=== PATIENT | male | born 1950 | race Caucasian/White ===

== ENCOUNTER 2021-03-25 17:19 | Emergency (ER) | payer MEDICARE, BC, SELFPAY ==
[2021-03-25] VITALS (7 sets, daily range): BP systolic 115–170; BP diastolic 64–97; PULSE 101–130; RESP 18–22; TEMP 37.2; O2SAT 90–98; BMI 33.5
--- NOTE | 2021-03-25 17:28 | CTR_ITS ---
PROCEDURE INFORMATION: Exam: CT Head Without Contrast Exam date and time: 03/25/2021 5:28 PM Age: 70 years old Clinical indication: Injury or trauma; Other: Thrown from horse. Horse May have rolled onto PT; Blunt trauma (contusions or hematomas); Consciousness not specified TECHNIQUE: Imaging protocol: Computed tomography of the head without contrast. Radiation optimization: All CT scans at this facility use at least one of these dose optimization techniques: automated exposure control; mA and/or kV adjustment per patient size (includes targeted exams where dose is matched to clinical indication); or iterative reconstruction. COMPARISON: No relevant prior studies available. RADIATION DOSE METRICS: Total DLP (mGy-cm): 940.41 FINDINGS: Brain: Normal. No hemorrhage. Unremarkable white matter. No mass effect. Cerebral ventricles: No ventriculomegaly. Paranasal sinuses: Visualized sinuses are unremarkable. No fluid levels. Mastoid air cells: Visualized mastoid air cells are well aerated. Bones/joints: Unremarkable. No acute fracture. Soft tissues: Unremarkable. CT/CT head wo con* [id number] IMPRESSION: Negative for intracranial hemorrhage or mass effect. Radiation Dose CTDIVOL = (mGy): DLP = 940.41 (mGy-cm)
--- NOTE | 2021-03-25 17:28 | CTR_ITS ---
PROCEDURE INFORMATION: Exam: CT Chest With Contrast; Diagnostic Exam date and time: 03/25/2021 5:28 PM Age: 70 years old Clinical indication: Injury or trauma; Other: Thrown from horse and horse May have rolled onto patient; Generalized; Blunt trauma (contusions or hematomas) TECHNIQUE: Imaging protocol: Diagnostic computed tomography of the chest with contrast. Radiation optimization: All CT scans at this facility use at least one of these dose optimization techniques: automated exposure control; mA and/or kV adjustment per patient size (includes targeted exams where dose is matched to clinical indication); or iterative reconstruction. Contrast material: VISI 320; Contrast volume: 95 ml; Contrast route: INTRAVENOUS (IV); COMPARISON: CR (PELVIS, ) 03/25/2021 5:48 PM RADIATION DOSE METRICS: Total DLP (mGy-cm): 2279.44 FINDINGS: Lungs: Unremarkable. No consolidation. No masses. Pleural spaces: Unremarkable. No pneumothorax. No pleural effusion. Heart: Mild multichamber cardiac enlargement. Negative for pericardial effusion. Mediastinal space: No mediastinal hematoma. Aorta: Unremarkable. No aortic aneurysm. Lymph nodes: Unremarkable. No enlarged lymph nodes. Bones/joints: Severely displaced fracture in the proximal 3rd of the left clavicle. The head of the clavicle is fractured but aligned with the manubrium. The more distal shaft is displaced anteriorly. Thoracic spine alignment is anatomic. No thoracic vertebral fracture identified. Soft tissues: There is a focal soft tissue hematoma of the medial anterior chest adjacent the fracture which include thickening of the distal left sternocleidomastoid muscle. IMPRESSION: 1. Comminuted, displaced medial left clavicle fracture with associated soft tissue hematoma. 2. Negative for intrathoracic injury. PROCEDURE INFORMATION: Exam: CT Abdomen And Pelvis With Contrast Exam date and time: 03/25/2021 5:28 PM Age: 70 years old Clinical indication: Injury or trauma; Other: Thrown from horse and horse May have rolled onto patient; Generalized; Blunt trauma (contusions or hematomas) TECHNIQUE: Imaging protocol: Computed tomography of the abdomen and pelvis with contrast. Radiation optimization: All CT scans at this facility use at least one of these dose optimization techniques: automated exposure control; mA and/or kV adjustment per patient size (includes targeted exams where dose is matched to clinical indication); or iterative reconstruction. Contrast material: VISI 320; Contrast volume: 95 ml; Contrast route: INTRAVENOUS (IV); COMPARISON: CR (PELVIS, ) 03/25/2021 5:48 PM RADIATION DOSE METRICS: Total DLP (mGy-cm): 2279.44 FINDINGS: Liver: Normal. No mass. Gallbladder and bile ducts: Cholecystectomy. Nondilated biliary system. Pancreas: Normal. No ductal dilation. Spleen: Normal. No splenomegaly. Adrenal glands: Normal. No mass. Kidneys and ureters: Several small simple bilateral renal cortical cysts. No dedicated follow-up. Negative for hydronephrosis. No renal injury. Stomach and bowel: Unremarkable. No obstruction. No mucosal thickening. Large incidental diverticulum at the duodenal jejunal junction. Appendix: No evidence of appendicitis. Intraperitoneal space: Unremarkable. No free air. No significant fluid collection. Vasculature: Unremarkable. No abdominal aortic aneurysm. Lymph nodes: Unremarkable. No enlarged lymph nodes. Urinary bladder: Unremarkable as visualized. Reproductive: Large calcifications in the prostate gland. No prostate gland enlargement. Bones/joints: Unremarkable. No acute fracture. Soft tissues: Unremarkable. CT/CT chest abd pel w con* IMPRESSION: Negative for acute abdominopelvic injury. COMMENTS: Consistent with the [employer]'s Incidental Findings Committee white paper (J Am Royal [employer]iol 2018): Any incidental renal lesion less than 1 cm or classified as too small to characterize, or any incidental cystic renal lesion characterized as simple-appearing, is likely benign. No follow-up imaging is recommended for these lesions per consensus recommendations based on imaging criteria. Radiation Dose CTDIVOL = (mGy): DLP = 2279.44~2279.44 (mGy-cm)
--- NOTE | 2021-03-25 17:28 | CTR_ITS ---
PROCEDURE INFORMATION: Exam: CT Cervical Spine Without Contrast Exam date and time: 03/25/2021 5:28 PM Age: 70 years old Clinical indication: Injury or trauma; Other: Thrown from horse and horse May have rolled onto PT; Blunt trauma TECHNIQUE: Imaging protocol: Computed tomography images of the cervical spine without contrast. Radiation optimization: All CT scans at this facility use at least one of these dose optimization techniques: automated exposure control; mA and/or kV adjustment per patient size (includes targeted exams where dose is matched to clinical indication); or iterative reconstruction. COMPARISON: CT head wo con* [id number] 03/25/2021 5:58 PM RADIATION DOSE METRICS: Total DLP (mGy-cm): 716.83 FINDINGS: Vertebrae: No acute fracture. Normal alignment. C2-C3: No significant disc protrusion. No severe spinal canal stenosis. No significant neural foraminal narrowing. C3-C4: No significant disc protrusion. No severe spinal canal stenosis. No significant neural foraminal narrowing. C4-C5: No significant disc protrusion. No severe spinal canal stenosis. No significant neural foraminal narrowing. C5-C6: No significant disc protrusion. No severe spinal canal stenosis. No significant neural foraminal narrowing. C6-C7: No significant disc protrusion. No severe spinal canal stenosis. No significant neural foraminal narrowing. C7-T1: No significant disc protrusion. No severe spinal canal stenosis. No significant neural foraminal narrowing. Soft tissues: Unremarkable. Mastoid air cells: Left sternocleidomastoid appears somewhat enlarged with some surrounding edema, likely related to trauma. Lungs: Lung apices are normal. CT/CT cervical spin wo con* [id number] IMPRESSION: 1. Negative for fracture or dislocation. 2. Left sternocleidomastoid appears somewhat enlarged with some surrounding edema, likely related to trauma. Radiation Dose CTDIVOL = (mGy): DLP = 716.83 (mGy-cm)
--- NOTE | 2021-03-25 17:28 | XRR_ITS ---
PROCEDURE INFORMATION: Exam: XR Pelvis Exam date and time: 03/25/2021 5:28 PM Age: 70 years old Clinical indication: Pelvic pain; Additional info: Trauma TECHNIQUE: Imaging protocol: XR pelvis. Views: 1 or 2 view. COMPARISON: No relevant prior studies available. FINDINGS: Bones/joints: Unremarkable. No acute fracture. Symmetric moderate narrowing of hip joint spaces. Soft tissues: Unremarkable. XR/XR pelvis 1-2V* [id number] IMPRESSION: No acute findings. Radiation Dose CTDIVOL = (mGy): DLP = (mGy-cm)
--- NOTE | 2021-03-25 17:33 | XRR_ITS ---
PROCEDURE INFORMATION: Exam: XR Left Elbow Exam date and time: 03/25/2021 5:33 PM Age: 70 years old Clinical indication: Pain; Left; Prior surgery; Surgery date: 6+ months; Surgery type: Lt . elbow TECHNIQUE: Imaging protocol: XR Left elbow. Views: 3 or more views. COMPARISON: No relevant prior studies available. FINDINGS: Bones/joints: No acute fractures. Significant arthritis changes of joint space. Joint space alignment anatomic. Chronic corticated bone fragments of the proximal ulna. Surgical loi in the proximal ulna. Negative for joint effusion. Soft tissues: Normal. XR/XR elbow LT min 3V* [id number] IMPRESSION: Negative for acute osseous abnormality. Radiation Dose CTDIVOL = (mGy): DLP = (mGy-cm)
--- NOTE | 2021-03-25 17:47 | ED_ITS ---
Documented by User: Bogdan Brown DO 03/27/21 06:01 HPI - Trauma General: Chief Complaint: Trauma Stated Complaint: R SHOULDER PAIN, R RIB PAIN Time Seen by Provider: 03/25/21 17:23 History of Present Illness: HPI narrative: 70-year-old male was riding horses at a local trail ride and the horse was startled he was thrown from a horse and rolled out of embankment an unknown length. He did strike his head he is unsure if he lost consciousness. Is complaining of right elbow and shoulder pain MD complaint: fall Onset (ago): minute(s) Loss of Consciousness: unsure Location: head Context: other (Fall from a horse) Associated symptoms: Reports back pain, difficulty breathing (Pain with inspiration) and headache(s); Denies abdominal pain, chest pain, chills, confusion, cough, dental pain, diaphoresis, dizziness, epistaxis, fever(s), nausea, seizures, short of breath, syncope, visual disturbances, vomiting or weakness Review of Systems Const: Denies: fever(s), chills or diaphoresis ENMT: Denies: dental pain or epistaxis Card: Denies: chest pain or syncope Resp: Denies: dyspnea, productive cough or non-productive cough GI: Denies: abdominal pain, nausea or vomiting : Denies: flank pain, dysuria, urinary frequency or urinary urgency Musc: Reports: back pain, extremity pain (Left hip) and other (Left clavicle tenderness) Skin/Breast: Reports: other (Left forearm abrasion) Neuro: Reports: headache(s); Denies: dizziness or confusion Physical Exam Const: COMMON NORMALS: no acute distress GENERAL APPEARANCE: cooperative and comfortable ORIENTATION/CONSCIOUSNESS: Yes awake, Yes oriented to person, Yes oriented to place and Yes oriented to time HENMT: COMMON NORMALS: normocephalic, atraumatic, hearing grossly normal bilaterally, external ears normal, EAC's normal, TM's normal bilaterally, Normal nasal mucous membranes and turbinates present, moist oral mucous membranes and oropharynx normal HEAD & SCALP: normocephalic and atraumatic NOSE: Normal nasal mucous membranes and turbinates present EXTERNAL EAR: Yes external ears normal EXTERNAL AUDITORY CANAL: EAC's normal TYMPANIC MEMBRANE: TM's normal bilaterally Eye: COMMON NORMALS: Equal, round and reactive pupils present, EOMs intact bilaterally, conjunctivae normal and no scleral icterus CONJUNCTIVA: Yes conjunctivae normal PUPIL: Yes Equal, round and reactive pupils present Neck/C-Spine: COMMON NORMALS: full ROM, no lymphadenopathy, supple and no JVD Resp: COMMON NORMALS: normal respiratory effort, No retractions, No use of accessory muscles and clear to auscultation bilaterally AUSCULTATION: clear to auscultation bilaterally Cardio: COMMON NORMALS: no JVD, regular rate, regular rhythm and No murmurs present (Cardio) RATE: regular rate RHYTHM: regular rhythm GI: COMMON NORMALS: Soft to palpation and No hepatosplenomegaly present AUSCULTATION: Yes normoactive bowel sounds PALPATION: Yes Soft to palpation, No Tenderness to palpation present (GI), No Guarding due to palpation present (GI) and Yes No hepatosplenomegaly present Extremity: COMMON NORMALS: normal to inspection, capillary refill normal, no clubbing, cyanosis or edema, no calf tenderness and no pedal edema NARRATIVE EXTREMITY EXAM: Left hip pain on palpation, abrasion left elbow, pain discomfort with range of motion of the left shoulder palpation of the clavicle Neuro: SENSORIUM/ORIENTATION: Yes oriented to person, Yes oriented to place and Yes oriented to time Skin: COMMON NORMALS: no rashes or lesions noted GENERAL SKIN EXAM: no rashes or lesions noted Course Vital Signs: Vital signs: Vital Signs Temperature 98.9 F 03/25/21 17:49 Pulse Rate 105 H 03/25/21 21:47 Respiratory Rate 18 03/25/21 21:47 Blood Pressure 115/64 03/25/21 21:47 Pulse Oximetry 95 03/25/21 21:47 MDM - Trauma MDM Narrative: Medical decision making narrative: Initial evaluation and assessment. Labs ordered along with imaging. Care turned over to Dr. Linares at change of shift see his note for final diagnosis and disposition Lab Data: Labs: Lab Results 03/25/21 03/25/21 03/25/21 17:39 17:39 19:15 WBC 12.9 10^3/uL H 10 ^3/uL (4.0-10.0) RBC 5.33 10^6/uL H 10 ^6/uL (4.1-5.3) Hgb 16.3 g/dL g/dL (11.7-16.6) Hct 48.7 % % (42.0-52.0) MCV 91.4 fl fl (80-94) MCH 30.6 pg pg (28.0-34.0) MCHC 33.5 g/dL g/dL (30.0-36.0) RDW 13.2 % % (12.1-15.1) Plt Count 146 10^3/cmm 10^3 /cmm (130-400) MPV 10.7 fL H fL (7.4-10.4) Neut % (Auto) 85.5 % % Lymph % (Auto) 7.1 % % [place] % (Auto) 6.1 % % Eos % (Auto) 0.3 % % Baso % (Auto) 0.4 % % Neut # (Auto) 11.01 10^3/uL H 1 0^3/uL (1.8-7.7) Lymph # (Auto) 0.9 10^3/uL 10^3/ uL (0.8-4.8) [place] # (Auto) 0.8 10^3/uL 10^3/ uL (0.2-0.9) Eos # (Auto) 0.0 10^3/uL 10^3/ uL (0.0-0.8) Baso # (Auto) 0.1 10^3/uL 10^3/ uL (0.0-0.1) Nucleated RBC % (a uto) 0 % % Nucleated RBCs # 0.0 /100WBC /100W BC Sodium 137 mmol/L mmol/L (136-145) Potassium 4.1 mmol/L mmol/L (3.5-5.1) Chloride 100 mmol/L mmol/L (98-107) Carbon Dioxide 25 mmol/L mmol/L (22-29) Anion Gap 16.1 (5-19) BUN 13 mg/dL mg/dL (8-23) Creatinine 0.6 mg/dL L mg/dL (0.7-1.2) GFR Calculation Not Reportable Glucose 124 mg/dL H mg/dL (65-115) Calculated Osmolal ity 286 mOsm/kg mOsm/ kg (285-295) Calcium 8.7 mg/dL mg/dL (8.5-10.5) Total Bilirubin 0.7 mg/dL mg/dL (0.15-1.2) AST 34 U/L U/L (0-40) ALT 23 U/L U/L (0-41) Alkaline Phosphata se 82 IU/L IU/L (40-130) Total Protein 6.8 g/dL g/dL (6.6-8.7) Albumin 4.0 g/dL g/dL (3.5-5.2) Globulin 2.8 g/dL g/dL (1.3-4.6) Urine Color Yellow (Yellow) Urine Appearance Cloudy (CLEAR) Urine pH 5 (5-7) Ur Specific Gravit y 1.020 (1.005-1.030) Urine Protein Trace (Negative) Urine Glucose (UA) Norm (Normal) Urine Ketones 2+ H (Negative) Urine Blood 2+ H (Negative) Urine Nitrate Negative (Negative) Urine Bilirubin 1+ H (Negative) Urine Urobilinogen 1 mg/dL H mg/dL (Negative) Ur Leukocyte Leticia ase Trace H (Negative) Urine RBC 0-4 /hpf H /hpf (0-2) Urine WBC 5-10 /hpf H /hpf (0-5) Ur Squamous Epith Cells 0-4 /hpf H /hpf (0-5) Calcium Oxalate Cr ystal 5-10 /hpf H /hpf Amorphous Sediment Not Reportable Urine Bacteria 1+ /hpf H /hpf (NONE) Urine Sperm 4+ /hpf /hpf Discharge Plan Discharge Patient Disposition: Home Clinical Impression: Clavicular fracture, Acute hip pain, Abrasion, Atrial fibrillation Condition: Stable Prescriptions: New acetaminophen 500 mg tablet 500 mg PO Q6H PRN (Reason: pain) 10 Days Qty: 40 RF: 0 lidocaine 5 % adhesive patch,medicated 1 patch topical DAILY PRN (Reason: pain) 10 Days Qty: 10 RF: 0 orphenadrine citrate 100 mg tablet extended release 100 mg PO BID PRN (Reason: pain) 10 Days Qty: 20 RF: 0 metoprolol succinate 25 mg tablet extended release 24 hr 25 mg PO DAILY 7 Days Qty: 7 RF: 0 Discharge Orders: Discharge ED (Routine); Ordered 03/25/21 Ordered By: Monroe Linares Discharge Diet: Advance as tolerated Discharge Activity: Resume usual activity Patient Instructions: Fractures, A-fib (Atrial Fibrillation) (ED) Activity Restrictions/Additional Instructions: Our field case manager will have you follow-up with Orthopedics and PCP in the next few days. You would be expected to have a phone call with our field case manager who will put you on the schedule. Take your medicine as instructed. Please use your sling for your clavicular fracture. Come back if you have any new or concerning issues. 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 HEENT: No vision changes CV: No chest pain, no palpitations PULM: no cough, no dyspnea. GI: No abdominal pain, no N/V/D. : No dysuria MSKEL: +L hip pain, +L clavicular pain SKIN: +L forearm abrasion NEURO: No headache, no focal weakness. HEME: No visible bruises PSYCH: Normal mood Physical Exam Narrative: EXAM NARRATIVE: Head: Atraumatic Eyes: PERRL, conjunctiva without injection ENT: Mucous membrane moist NECK: Supple, ROM intact LUNGS: LCTAB, no crackles/rhonchi CV: RRR ABDOMEN: Soft, nontender in all quadrants EXTREMITY: +L hip tenderness to palpation, L BKA, +L clavicular ttp SKIN: +abrasions over the L arm NEURO: Awake and alert, no focal motor deficits PSYCH: Normal mood and affect Course Vital Signs: Vital signs: Vital Signs Temperature 98.9 F 03/25/21 17:49 Pulse Rate 105 H 03/25/21 21:47 Respiratory Rate 18 03/25/21 21:47 Blood Pressure 115/64 03/25/21 21:47 Pulse Oximetry 95 03/25/21 21:47 MDM - Trauma MDM Narrative: Medical decision making narrative: 70-year-old male presents emergency room after falling off a horse. On exam, patient has tenderness to palpation over the left clavicle. He has abrasions over the L forearm. S/p TDAP and T3 in th ED Patient stating significant for left clavicular comminuted fracture. Patient is given follow-up with orthopedics for management of clavicular fracture. I have given patient follow up with our field case manager to be seen by our outpatient Orthopedics. Patient aware of a call from our field case manager to schedule for appointment(s) and verbalizes understanding of the importance of following up. Patient was observed in the emergency room, he was found to go into atrial fibrillation with RVR. Patient has no known history of atrial fibrillation. I have discussed this extensively with patient that this need to be evaluated since he is at risk for having stroke from it. Patient received 5 metoprolol IV and 50 mg of metoprolol p.o with significant improvement in atrial fibrillation. Patient has been able to ambulate. Patient is given a sling for his clavicular fracture. Rest of his work-up within normal limit. I have given patient follow up with our field case manager to be seen by a PCP for evaluation of new onset of atrial fibrillation. Patient aware of a call from our field case manager to schedule for appointment(s) and verbalizes understanding of the importance of following up. Will not anticoagulate today due to concerns for fall risks. Rx tylenol, norflex, lidocaine patch PRN pain, meotprolol PO for atrial fibrillation Disposition: Discharge. Patient counseled regarding diagnostic impression, treatment plan. Patient given ED strict return precautions to return for continuation, worsening, or development of new symptoms. Instructed to f/u w/ PCP regarding symptoms today. Patient verbalized understanding. Lab Data: Labs: Lab Results 03/25/21 03/25/21 03/25/21 17:39 17:39 19:15 WBC 12.9 10^3/uL H 10 ^3/uL (4.0-10.0) RBC 5.33 10^6/uL H 10 ^6/uL (4.1-5.3) Hgb 16.3 g/dL g/dL (11.7-16.6) Hct 48.7 % % (42.0-52.0) MCV 91.4 fl fl (80-94) MCH 30.6 pg pg (28.0-34.0) MCHC 33.5 g/dL g/dL (30.0-36.0) RDW 13.2 % % (12.1-15.1) Plt Count 146 10^3/cmm 10^3 /cmm (130-400) MPV 10.7 fL H fL (7.4-10.4) Neut % (Auto) 85.5 % % Lymph % (Auto) 7.1 % % [place] % (Auto) 6.1 % % Eos % (Auto) 0.3 % % Baso % (Auto) 0.4 % % Neut # (Auto) 11.01 10^3/uL H 1 0^3/uL (1.8-7.7) Lymph # (Auto) 0.9 10^3/uL 10^3/ uL (0.8-4.8) [place] # (Auto) 0.8 10^3/uL 10^3/ uL (0.2-0.9) Eos # (Auto) 0.0 10^3/uL 10^3/ uL (0.0-0.8) Baso # (Auto) 0.1 10^3/uL 10^3/ uL (0.0-0.1) Nucleated RBC % (a uto) 0 % % Nucleated RBCs # 0.0 /100WBC /100W BC Sodium 137 mmol/L mmol/L (136-145) Potassium 4.1 mmol/L mmol/L (3.5-5.1) Chloride 100 mmol/L mmol/L (98-107) Carbon Dioxide 25 mmol/L mmol/L (22-29) Anion Gap 16.1 (5-19) BUN 13 mg/dL mg/dL (8-23) Creatinine 0.6 mg/dL L mg/dL (0.7-1.2) GFR Calculation Not Reportable Glucose 124 mg/dL H mg/dL (65-115) Calculated Osmolal ity 286 mOsm/kg mOsm/ kg (285-295) Calcium 8.7 mg/dL mg/dL (8.5-10.5) Total Bilirubin 0.7 mg/dL mg/dL (0.15-1.2) AST 34 U/L U/L (0-40) ALT 23 U/L U/L (0-41) Alkaline Phosphata se 82 IU/L IU/L (40-130) Total Protein 6.8 g/dL g/dL (6.6-8.7) Albumin 4.0 g/dL g/dL (3.5-5.2) Globulin 2.8 g/dL g/dL (1.3-4.6) Urine Color Yellow (Yellow) Urine Appearance Cloudy (CLEAR) Urine pH 5 (5-7) Ur Specific Gravit y 1.020 (1.005-1.030) Urine Protein Trace (Negative) Urine Glucose (UA) Norm (Normal) Urine Ketones 2+ H (Negative) Urine Blood 2+ H (Negative) Urine Nitrate Negative (Negative) Urine Bilirubin 1+ H (Negative) Urine Urobilinogen 1 mg/dL H mg/dL (Negative) Ur Leukocyte Leticia ase Trace H (Negative) Urine RBC 0-4 /hpf H /hpf (0-2) Urine WBC 5-10 /hpf H /hpf (0-5) Ur Squamous Epith Cells 0-4 /hpf H /hpf (0-5) Calcium Oxalate Cr ystal 5-10 /hpf H /hpf Amorphous Sediment Not Reportable Urine Bacteria 1+ /hpf H /hpf (NONE) Urine Sperm 4+ /hpf /hpf Imaging Data^: Other Imaging: Radiologist's impression: [address] [address]GRvj ReportSigned Patient: Rachel Perales #: [id number]: 03/19/1951Acct#:[id number]/Sex: 70 / MADM Date: 03/25/21Loc: ERRoom/Bed:Attending Dr: Ordering Provider/Ordering MD: Bogdan Brown DO Date of Service: 03/25/21 Procedure(s): XR shoulder LT min 2V* 25233 Accession Number(s): [id number] Report Number: [id number] PROCEDURE INFORMATION: Exam: XR Left Shoulder Exam date and time: 03/25/2021 5:50 PM Age: 70 years old Clinical indication: Pain; Shoulder; Left; Additional info: Pain/trauma TECHNIQUE: Imaging protocol: XR Left shoulder. Views: 2 or more views. COMPARISON: CT chest abd pel w con* 03/25/2021 6:03 PM FINDINGS: Bones/joints: Comminuted medial left clavicle fracture. Acromioclavicular joint intact. Glenohumeral joint intact. Heart/Mediastinum: Mild to moderate cardiac enlargement. Soft tissues: Normal. XR/XR shoulder LT min 2V* 07392 IMPRESSION: Comminuted medial 3rd left clavicle fracture. Radiation Dose CTDIVOL = (mGy): DLP = (mGy-cm) Dictated By:Dwayne DurbininSigned By:RamakrishnainS Date/Time:03/25/21/ [address] [address]JYdr ReportSigned Patient: Rachel Perales #: [id number]: 03/19/1951Acct#:[id number]/Sex: 70 / MADM Date: 03/25/21Loc: ERRoom /Bed:Attending Dr: Ordering Provider/Ordering MD: Bogdan Brown DO Date of Service: 03/25/21 Procedure(s): XR elbow LT min 3V* 46812 Accession Number(s): [id number] Report Number: [id number] PROCEDURE INFORMATION: Exam: XR Left Elbow Exam date and time: 03/25/2021 5:33 PM Age: 70 years old Clinical indication: Pain; Left; Prior surgery; Surgery date: 6+ months; Surgery type: Lt . elbow TECHNIQUE: Imaging protocol: XR Left elbow. Views: 3 or more views. COMPARISON: No relevant prior studies available. FINDINGS: Bones/joints: No acute fractures. Significant arthritis changes of joint space. Joint space alignment anatomic. Chronic corticated bone fragments of the proximal ulna. Surgical loi in the proximal ulna. Negative for joint effusion. Soft tissues: Normal. XR/XR elbow LT min 3V* 94654 IMPRESSION: Negative for acute osseous abnormality. Radiation Dose CTDIVOL = (mGy): DLP = (mGy-cm) Dictated By:Karly Durbin By:Karly Durbin Date/Time:03/25/21/ [address] [place], [place] [address]IIwi ReportSigned Patient: Rachel Perales #: [id number]: 03/19/1951Acct#:[id number]/Sex: 70 MADM Date: 03/25/21Loc: ERRoom/Bed:Attending Dr: Ordering Provider/Ordering MD: Bogdan Brown DO Date of Service: 03/25/21 Procedure(s): XR pelvis 1-2V* 00550 Accession Number(s): [id number] Report Number: [id number] PROCEDURE INFORMATION: Exam: XR Pelvis Exam date and time: 03/25/2021 5:28 PM Age: 70 years old Clinical indication: Pelvic pain; Additional info: Trauma TECHNIQUE: Imaging protocol: XR pelvis. Views: 1 or 2 view. COMPARISON: No relevant prior studies available. FINDINGS: Bones/joints: Unremarkable. No acute fracture. Symmetric moderate narrowing of hip joint spaces. Soft tissues: Unremarkable. XR/XR pelvis 1-2V* 06757 IMPRESSION: No acute findings. Radiation Dose CTDIVOL = (mGy): DLP = (mGy-cm) Dictated By:Karly Durbin By:Karly Durbin Date/Time:03/25/21 1838DD/ [address] [address]QC Scan ReportSigned Patient: Rachel Perales #: [id number]: 950Acct#:[id number]/Sex: MADM Date: 03/25/21Loc: ERRoom/Bed:Attending Dr: Ordering Provider/Ordering MD: Bogdan Brown DO Date of Service: 03/25/21 Procedure(s): CT head wo con* 64200 Accession Number(s): [id number] Report Number: [id number] PROCEDURE INFORMATION: Exam: CT Head Without Contrast Exam date and time: 03/25/2021 5:28 PM Age: 70 years old Clinical indication: Injury or trauma; Other: Thrown from horse. Horse May have rolled onto PT; Blunt trauma (contusions or hematomas); Consciousness not specified TECHNIQUE: Imaging protocol: Computed tomography of the head without contrast. Radiation optimization: All CT scans at this facility use at least one of these dose optimization techniques: automated exposure control; mA and/or kV adjustment per patient size (includes targeted exams where dose is matched to clinical indication); or iterative reconstruction. COMPARISON: No relevant prior studies available. RADIATION DOSE METRICS: Total DLP (mGy-cm): 940.41 FINDINGS: Brain: Normal. No hemorrhage. Unremarkable white matter. No mass effect. Cerebral ventricles: No ventriculomegaly. Paranasal sinuses: Visualized sinuses are unremarkable. No fluid levels. Mastoid air cells: Visualized mastoid air cells are well aerated. Bones/joints: Unremarkable. No acute fracture. Soft tissues: Unremarkable. CT/CT head wo con* [id number] IMPRESSION: Negative for intracranial hemorrhage or mass effect. Radiation Dose CTDIVOL = (mGy): DLP = 940.41 (mGy-cm) Dictated By:Fausto Dawson MDSigned By:Fausto Dawson MDSigned Date/Time:03/25/21 1855DD/ 1728 [address] [place], [place] [address]HW Scan ReportSigned Patient: Rachel Perales #: [id number]: 03/19/1951Acct#:[id number]/Sex: 70 / MADM Date: 03/25/21Loc: ERRoom/Bed:Attending Dr: Ordering Provider/Ordering MD: Bogdan Brown DO Date of Service: 03/25/21 Procedure(s): CT chest abd pel w con* Accession Number(s): [id number] Report Number: [id number] PROCEDURE INFORMATION: Exam: CT Chest With Contrast; Diagnostic Exam date and time: 03/25/2021 5:28 PM Age: 70 years old Clinical indication: Injury or trauma; Other: Thrown from horse and horse May have rolled onto patient; Generalized; Blunt trauma (contusions or hematomas) TECHNIQUE: Imaging protocol: Diagnostic computed tomography of the chest with contrast. Radiation optimization: All CT scans at this facility use at least one of these dose optimization techniques: automated exposure control; mA and/or kV adjustment per patient size (includes targeted exams where dose is matched to clinical indication); or iterative reconstruction. Contrast material: VISI 320; Contrast volume: 95 ml; Contrast route: INTRAVENOUS (IV); COMPARISON: CR (PELVIS, ) 03/25/2021 5:48 PM RADIATION DOSE METRICS: Total DLP (mGy-cm): 2279.44 FINDINGS: Lungs: Unremarkable. No consolidation. No masses. Pleural spaces: Unremarkable. No pneumothorax. No pleural effusion. Heart: Mild multichamber cardiac enlargement. Negative for pericardial effusion. Mediastinal space: No mediastinal hematoma. Aorta: Unremarkable. No aortic aneurysm. Lymph nodes: Unremarkable. No enlarged lymph nodes. Bones/joints: Severely displaced fracture in the proximal 3rd of the left clavicle. The head of the clavicle is fractured but aligned with the manubrium. The more distal shaft is displaced anteriorly. Thoracic spine alignment is anatomic. No thoracic vertebral fracture identified. Soft tissues: There is a focal soft tissue hematoma of the medial anterior chest adjacent the fracture which include thickening of the distal left sternocleidomastoid muscle. IMPRESSION: 1. Comminuted, displaced medial left clavicle fracture with associated soft tissue hematoma. 2. Negative for intrathoracic injury. PROCEDURE INFORMATION: Exam: CT Abdomen And Pelvis With Contrast Exam date and time: 03/25/2021 5:28 PM Age: 70 years old Clinical indication: Injury or trauma; Other: Thrown from horse and horse May have rolled onto patient; Generalized; Blunt trauma (contusions or hematomas) TECHNIQUE: Imaging protocol: Computed tomography of the abdomen and pelvis with contrast. Radiation optimization: All CT scans at this facility use at least one of these dose optimization techniques: automated exposure control; mA and/or kV adjustment per patient size (includes targeted exams where dose is matched to clinical indication); or iterative reconstruction. Contrast material: VISI 320; Contrast volume: 95 ml; Contrast route: INTRAVENOUS (IV); COMPARISON: CR (PELVIS, ) 03/25/2021 5:48 PM RADIATION DOSE METRICS: Total DLP (mGy-cm): 2279.44 FINDINGS: Liver: Normal. No mass. Gallbladder and bile ducts: Cholecystectomy. Nondilated biliary system. Pancreas: Normal. No ductal dilation. Spleen: Normal. No splenomegaly. Adrenal glands: Normal. No mass. Kidneys and ureters: Several small simple bilateral renal cortical cysts. No dedicated follow-up. Negative for hydronephrosis. No renal injury. Stomach and bowel: Unremarkable. No obstruction. No mucosal thickening. Large incidental diverticulum at the duodenal jejunal junction. Appendix: No evidence of appendicitis. Intraperitoneal space: Unremarkable. No free air. No significant fluid collection. Vasculature: Unremarkable. No abdominal aortic aneurysm. Lymph nodes: Unremarkable. No enlarged lymph nodes. Urinary bladder: Unremarkable as visualized. Reproductive: Large calcifications in the prostate gland. No prostate gland enlargement. Bones/joints: Unremarkable. No acute fracture. Soft tissues: Unremarkable. CT/CT chest abd pel w con* IMPRESSION: Negative for acute abdominopelvic injury. COMMENTS: Consistent with the [employer]'s Incidental Findings Committee white paper (J Am Royal Radiol 2018): Any incidental renal lesion less than 1 cm or classified as too small to characterize, or any incidental cystic renal lesion characterized as simple-appearing, is likely benign. No follow-up imaging is recommended for these lesions per consensus recommendations based on imaging criteria. Radiation Dose CTDIVOL = (mGy): DLP = 2279.44~2279.44 (mGy-cm) Dictated By:Karly Durbin By:Karly Durbin Date/Time:03/25/217DD/ [address] [id number] Scan ReportSigned Patient: Rachel Perales #: [id number]: 03/19/1951Acct#:[id number]/Sex: 70 / MADM Date: 03/25/21Loc: ERRoom/Bed:Attending Dr: Ordering Provider/Ordering MD: Bogdan Brown DO Date of Service: 03/25/21 Procedure(s): CT cervical spin wo con* [id number] Accession Number(s): [id number] Report Number: [id number] PROCEDURE INFORMATION: Exam: CT Cervical Spine Without Contrast Exam date and time: 03/25/2021 5:28 PM Age: 70 years old Clinical indication: Injury or trauma; Other: Thrown from horse and horse May have rolled onto PT; Blunt trauma TECHNIQUE: Imaging protocol: Computed tomography images of the cervical spine without contrast. Radiation optimization: All CT scans at this facility use at least one of these dose optimization techniques: automated exposure control; mA and/or kV adjustment per patient size (includes targeted exams where dose is matched to clinical indication); or iterative reconstruction. COMPARISON: CT head wo con* [id number] 03/25/2021 5:58 PM RADIATION DOSE METRICS: Total DLP (mGy-cm): 716.83 FINDINGS: Vertebrae: No acute fracture. Normal alignment. C2-C3: No significant disc protrusion. No severe spinal canal stenosis. No significant neural foraminal narrowing. C3-C4: No significant disc protrusion. No severe spinal canal stenosis. No significant neural foraminal narrowing. C4-C5: No significant disc protrusion. No severe spinal canal stenosis. No significant neural foraminal narrowing. C5-C6: No significant disc protrusion. No severe spinal canal stenosis. No significant neural foraminal narrowing. C6-C7: No significant disc protrusion. No severe spinal canal stenosis. No significant neural foraminal narrowing. C7-T1: No significant disc protrusion. No severe spinal canal stenosis. No significant neural foraminal narrowing. Soft tissues: Unremarkable. Mastoid air cells: Left sternocleidomastoid appears somewhat enlarged with some surrounding edema, likely related to trauma. Lungs: Lung apices are normal. CT/CT cervical spin wo con* [id number] IMPRESSION: 1. Negative for fracture or dislocation. 2. Left sternocleidomastoid appears somewhat enlarged with some surrounding edema, likely related to trauma. Radiation Dose CTDIVOL = (mGy): DLP = 716.83 (mGy-cm) Dictated By:Fausto Dawson MDSigned By:Fausto Dawson MDSigned Date/Time:03/25/211899DD/ 27 Discharge Plan Discharge Patient Disposition: Home Clinical Impression: Clavicular fracture, Acute hip pain, Abrasion, Atrial fibrillation Condition: Stable Prescriptions: New acetaminophen 500 mg tablet 500 mg PO Q6H PRN (Reason: pain) 10 Days Qty: 40 RF: 0 lidocaine 5 % adhesive patch,medicated 1 patch topical DAILY PRN (Reason: pain) 10 Days Qty: 10 RF: 0 orphenadrine citrate 100 mg tablet extended release 100 mg PO BID PRN (Reason: pain) 10 Days Qty: 20 RF: 0 metoprolol succinate 25 mg tablet extended release 24 hr 25 mg PO DAILY 7 Days Qty: 7 RF: 0 Discharge Orders: Discharge ED (Routine); Ordered 03/25/21 Ordered By: Monroe Linares Discharge Diet: Advance as tolerated Discharge Activity: Resume usual activity Patient Instructions: Fractures, A-fib (Atrial Fibrillation) (ED) Activity Restrictions/Additional Instructions: Our field case manager will have you follow-up with Orthopedics and PCP in the next few days. You would be expected to have a phone call with our field case manager who will put you on the schedule. Take your medicine as instructed. Please use your sling for your clavicular fracture. Come back if you have any new or concerning issues. 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
--- NOTE | 2021-03-25 17:50 | XRR_ITS ---
PROCEDURE INFORMATION: Exam: XR Left Shoulder Exam date and time: 03/25/2021 5:50 PM Age: 70 years old Clinical indication: Pain; Shoulder; Left; Additional info: Pain/trauma TECHNIQUE: Imaging protocol: XR Left shoulder. Views: 2 or more views. COMPARISON: CT chest abd pel w con* 03/25/2021 6:03 PM FINDINGS: Bones/joints: Comminuted medial left clavicle fracture. Acromioclavicular joint intact. Glenohumeral joint intact. Heart/Mediastinum: Mild to moderate cardiac enlargement. Soft tissues: Normal. XR/XR shoulder LT min 2V* [id number] IMPRESSION: Comminuted medial 3rd left clavicle fracture. Radiation Dose CTDIVOL = (mGy): DLP = (mGy-cm)
[2021-03-25 17:53] LABS: Basophils # 0.1 10^3/uL (0.0-0.1); Basophils % 0.4 %; Eosinophils % 0.3 %; Hematocrit 48.7 % (42.0-52.0); Hemoglobin 16.3 g/dL (11.7-16.6); Lymphocytes # 0.9 10^3/uL (0.8-4.8); Lymphocytes % 7.1 %; Mean Corpuscular HGB Conc 33.5 g/dL (30.0-36.0); Mean Corpuscular Hemoglobin 30.6 pg (28.0-34.0); Mean Corpuscular Volume 91.4 fl (80-94); Mean Platelet Volume 10.7 fL (7.4-10.4); Monocytes # 0.8 10^3/uL (0.2-0.9); Monocytes % 6.1 %; Neutrophils # 11.01 10^3/uL (1.8-7.7); Neutrophils % 85.5 %; Nucleated Red Blood Cells % 0 %; Platelet Count 146 10^3/cmm (130-400); Red Blood Count 5.33 10^6/uL (4.1-5.3); Red Cell Distribution Width 13.2 % (12.1-15.1); White Blood Count 12.9 10^3/uL (4.0-10.0)
[2021-03-25 18:32] LABS: Alanine Aminotransferase 23 U/L (0-41); Alkaline Phosphatase 82 IU/L (40-130); Blood Urea Nitrogen 13 mg/dL (8-23); Calcium 8.7 mg/dL (8.5-10.5); Carbon Dioxide 25 mmol/L (22-29); Chloride 100 mmol/L (98-107); Globulin 2.8 g/dL (1.3-4.6); Glucose 124 mg/dL (65-115); Osmolality Calculated 286 mOsm/kg (285-295); Sodium 137 mmol/L (136-145); Total Bilirubin 0.7 mg/dL (0.15-1.2); Total Protein 6.8 g/dL (6.6-8.7)
[2021-03-25 18:35] LABS: Anion Gap 16.1 (5-19); Aspartate Amino Transferase 34 U/L (0-40); Potassium 4.1 mmol/L (3.5-5.1)
[2021-03-25] MEDS: metoprolol tartrate 1 mg/1 mL SDV 5 mL 5 MG IVP (18:38)
[2021-03-25] MEDS: tetanus-dipt-pertussis 0.5 mL SDV IM (18:38)
[2021-03-25] MEDS: sodium chloride 0.9% 500 ML 999 ML IV (18:40)
[2021-03-25 21:30] LABS: Urine Appearance Cloudy (CLEAR); Urine Color Yellow (Yellow)
[2021-03-25 21:31] LABS: pH Urine 5 (5-7)
[2021-03-25 21:32] LABS: Bilirubin Urine 1+ (Negative); Blood Urine 2+ (Negative); Glucose Urine UA Norm (Normal); Ketones Urine 2+ (Negative); Leukocyte Esterase Urine Trace (Negative); Nitrate Urine Negative (Negative); Protein Urine Trace (Negative); Urobilinogen Urine 1 mg/dL (Negative)
[2021-03-25 21:33] LABS: Add Urine Microscopic? YES; Bacteria Urine 1+ /hpf; RBC Urine 0-4 /hpf (0-2); Squamous Epithelial Cell Urine 0-4 /hpf (0-5)
[2021-03-25 21:34] LABS: Add Urine Culture? No; Sperm Urine 4+ /hpf
--- NOTE | 2021-03-26 09:27 | DCPLANNER ---
field training manager had message to schedule a follow up appointment for patient with ortho. field training manager called the ortho clinic, spoke with Mary, gave clinic patients information. field training manager was told that patients information would be printed and reviewed. Clinic will call patient with appointment information.
--- NOTE | 2021-03-26 14:18 | DCPLANNER ---
manager union had message to speak with patient about follow up with primary care. Case easton spoke with patient, he stated that he is not from this area, that he has a primary care physician, and that he will schedule a follow up appointment if needed.
--- NOTE | 2021-05-01 15:08 | DCPLANNER ---
Patient had a follow up appointment scheduled with ortho - patient did not attend appointment.
== END 2021-03-25 21:49 | disposition home or self-care (01) ==
PROVIDERS: Family Medicine; Emergency Provider Emergency Medicine
DX: S42.012A Anterior displaced fracture of sternal end of left clavicle, initial encounter for closed fracture (principal); M25.552 Pain in left hip; I48.91 Unspecified atrial fibrillation; S50.812A Abrasion of left forearm, initial encounter; V80.010A Animal-rider injured by fall from or being thrown from horse in noncollision accident, initial encounter; Z23 Encounter for immunization
CPT/HCPCS: 70450; 71260; 72125; 72170; 73030; 73080; 74177; 80053; 81001; 85025; 90471; 90715; 96374; 99283; J3490; J7040; Q9967